=== PATIENT | male | born 1965 | race African-American/Black ===

== ENCOUNTER 2019-10-25 10:32 | Emergency (ER) | payer OTHER ==
[2019-10-25 10:59] VITALS: BP 161/92; PULSE 70; RESP 18; TEMP 97.9
--- NOTE | 2019-10-25 11:43 | XR ---
EXAM TYPE: LUMBAR SPINE X RAY SERIES COMPARISON: NONE HISTORY: Pain TECHNIQUE: 3 views are submitted. FINDINGS: Alignment is anatomic. The pedicles are intact. The transverse processes are intact. There is no s pondylolysis or spondylolisthesis. There is hypertrophic changes and degenerative disc disease at le vels L3-S1. No compression deformities. Foraminal encroachment at L4-5 and L5-S1 suggested. IMPRESSION: 1. Multilevel degenerative disc disease. Correlate with MRI as clinically warranted. Foraminal encroa chment at levels L4-5 and L5-S1.
--- NOTE | 2019-10-25 12:24 | ED ---
Back Pain HPI - General Chief Complaint: Back Pain/Injury Stated Complaint: lt leg numbness, back pain Time Seen by Provider: 10/25/19 11:05 Source: patient Limitations: no limitations - History of Present Illness Initial Comments: Patient is a 54-year-old male presenting to emergency Department with complaints of left lower back pain times one week. Patient denies any trauma or injuries to his back or legs. Patient states he woke up about a week ago and noticed some left lower back discomfort. He has had chronic low back pain in the past and thought it was just his normal pain. Over the past week, his pain has increased and he is now having radiating pain down his left leg. Patient denies any fever, chills, nausea, vomiting, urinary incontinence, numbness and tingling into his extremities. Patient has no other complaints at this time. Upon arrival to the ER, his vital signs are stable. - Related Data Previous Rx's Medication Instructions Recorded Cyclobenzaprine [Flexeril] 5 mg PO BID #10 tablet 10/25/19 Ketorolac [Toradol] 10 mg PO Q8HR #15 tab 10/25/19 Allergies Allergy/AdvReac Type Severity Reaction Status Date / Time No Known Allergies Allergy Verified 10/25/19 10:59 Review of Systems ROS Statement: Those systems with pertinent positive or pertinent negative responses have been documented in the HPI. ROS Other: All systems not noted in ROS Statement are negative. Past Medical History Past Medical History: No Reported History History of Any Multi-Drug Resistant Organisms: None Reported Past Surgical History: No Surgical Hx Reported Past Psychological History: No Psychological Hx Reported Smoking Status: Current every day smoker Past Alcohol Use History: None Reported Past Drug Use History: None Reported General Exam - General Exam Comments Initial Comments: GENERAL: Well-appearing, well-nourished and in no acute distress. HEAD: Atraumatic, normocephalic. EYES: Pupils equal round and reactive to light, extraocular movements intact, sclera anicteric, conjunctiva are normal. ENT: Moist mucous membranes. NECK: Normal range of motion, supple without lymphadenopathy or JVD. LUNGS: Breath sounds clear to auscultation bilaterally and equal. No wheezes rales or rhonchi. HEART: Regular rate and rhythm without murmurs, rubs or gallops. ABDOMEN: Soft, nontender, normoactive bowel sounds. No guarding, no rebound. No masses appreciated. : Deferred EXTREMITIES: Pain with palpation of the left lumbar paraspinals, left SI joint area. Mild pain in the left sciatic area. Normal truncal range of motion. Sensation is equal and bilateral. 5 out of 5 strength lower extremities. NEUROLOGICAL: Normal speech, normal gait. PSYCH: Normal mood, normal affect. SKIN: Warm, Dry, normal turgor, no rashes or lesions noted. Limitations: no limitations Course Vital Signs 10/25/19 10:56 Temperature 97.9 F Pulse Rate 70 Respiratory 18 Rate Blood Pressure 161/92 O2 Sat by Pulse 99 Oximetry Medical Decision Making - Medical Decision Making Patient is a 54-year-old male presenting with low back pain times one week. He has history of chronic low back pain. Vital signs are stable. No red flag symptoms. I discussed these findings with the patient. I offered a Toradol injection for pain however patient declined. Patient will be given short course of Toradol Flexeril for symptom relief. He is urged to follow up with neurology to discuss his symptoms. He is in agreement with this plan of care. Referral was given. Patient is stable for discharge at this time. Return parameters were discussed with the patient he verbalizes understanding. Case discussed with Dr. Hand. Disposition Clinical Impression: Low back pain Disposition: HOME SELF-CARE Condition: Stable Instructions (If sedation given, give patient instructions): Acute Low Back Pain (ED) Additional Instructions: Please return to the Emergency Department if symptoms worsen or any other concerns. Continue with anti-inflammatories as discussed and trial of muscle relaxer. Follow back up with back doctor as discussed. Prescriptions: Cyclobenzaprine [Flexeril] 5 mg PO BID #10 tablet Ketorolac [Toradol] 10 mg PO Q8HR #15 tab Is patient prescribed a controlled substance at d/c from ED?: No Referrals: None,Stated [Primary Care Provider] - 1-2 days Jacqueline Chauhan MD [Medical Doctor] - 1-2 days
== END 2019-10-25 12:42 | disposition home or self-care (01) ==
LOC: EC 10:32
DX: M54.5 Low back pain (principal); R20.0 Anesthesia of skin; G89.29 Other chronic pain; F17.200 Nicotine dependence, unspecified, uncomplicated
CPT/HCPCS: 72100; 99283